=== PATIENT | male | born 1980 | race Caucasian/White ===

== ENCOUNTER 2023-01-24 22:46 | Inpatient (IN) ==
[2023-01-24] MEDS ORDERED: ONDANSETRON INJ 2 MG/ML 2 ML VIAL IV STA (23:03)
[2023-01-24] MEDS: SODIUM CHLORIDE 0.9% 1000ML 1,000 ML IV SCH (23:21)
[2023-01-24 23:38] LABS: Basophils # (auto) 0.06 K/uL (0-0.2); Basophils % (auto) 0.4 %; Eosinophils # (auto) 0.07 K/uL (0-0.50); Eosinophils % (auto) 0.4 %; Hemoglobin 15.7 g/dl (14.0-18.0); Immature Granulocytes # (auto) 0.07 K/uL (0.01-0.20); Immature Granulocytes % (auto) 0.4 %; Lymphocytes # (auto) 1.26 K/uL (1.2-3.4); Lymphocytes % (auto) 7.4 %; Mean Corpuscular Hemoglobin 32.2 pg (25.0-34.0); Mean Corpuscular Hgb Conc 36.5 g/dL (32.0-36.0); Mean Corpuscular Volume 88.3 fL (80.0-100.0); Mean Platelet Volume 9.1 fL (9.4-12.4); Monocytes # (auto) 0.76 K/uL (0.11-0.59); Monocytes % (auto) 4.5 %; Neutrophils # (auto) 14.83 K/uL (1.40-6.50); Neutrophils % (auto) 86.9 %; Platelet Count 234 K/uL (130-400); RDW Coefficient of Variation 12.6 % (11.5-14.5); RDW Standard Deviation 40.6 fL (36.4-46.3); Red Blood Count 4.87 M/uL (4.70-6.10); White Blood Count 17.05 K/ul (4.8-10.8)
--- NOTE | 2023-01-24 23:40 | Emergency Department Note ---
History of Present Illness General Chief complaint: Flu Like Symptoms Stated complaint: NAUSEA, VOMITING, BODY ACHES, Time Seen by Provider: 01/24/23 22:54 History of Present Illness Maximum Pain Intensity: 9 This is a 42-year-old male presenting to the emergency department for evaluation of nausea, vomiting, and diarrhea for the past 4 to 5 hours. The patient does not have any known exposure to disease. He does have diffuse abdominal pain. He does not have a history of abdominal surgery. No fevers or chills. He does not report anyone else in the household who has been sick. No travel. He rates the discomfort a /10. Home Medications Medication Instructions Recorded Confirmed Type cholecalciferol (vitamin D3) 50 50 mcg PO QAM 10/23/22 01/24/23 History mcg (2,000 unit) tablet multivitamin 1 tab PO QAM 10/23/22 01/24/23 History Allergies Allergy/AdvReac Type Severity Reaction Status Date / Time No Known Drug Allergies Allergy Verified 10/28/22 11:50 Past Med/Surg History Medical History Blood pressure elevated without history of HTN Dyslipidemia Snores Surgical History History of wisdom tooth extraction Family History Mother Hypertension Coronary heart disease Myocardial infarction Thyroid disease Aunt Hemochromatosis Paternal Father Spinal stenosis Hypertension Denies family history of Colon cancer Ovarian cancer Prostate cancer Breast cancer Social History Smoking Status: Current every day smoker Tobacco Type: Cigarettes Cigarettes Per Day: 1/2 - 1 pack per day; Second Hand Exposure: Yes; Do You Dip or Chew Tobacco: No; Hx Alcohol Use: Yes Alcohol type: beer Alcohol Intake Frequency: 4 or More x per/Week Alcohol Intake Frequency Comment: 6 Hx Substance Use: No Preferred Language: Polish Communication Ability: Effective Visual Impairment: No Limitations Hearing Ability: Normal Steam Tunnel Feeder Required: No Beliefs That Will Affect Care: None marital status: Legally Current Living Situation: Family Current Living Situation Comment: lives with his children current occupational status: employed 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 How many Children do You have: 2 Feels Safe at Home: Yes Childhood Exposure to Second-Hand Smoke: Yes Diet: regular caffeine: No during the past year weight has: decreased > 10 lbs Dental Care, Regularly: Yes Physical Activity Frequency: 1-2 Times per Week Seatbelt Use: always Sunscreen Use: Yes Assistive Devices: None Review of Systems A total of 10 systems reviewed and were otherwise negative Physical Exam Vital Signs Vital Signs - 24 hr 01/24/23 22:49 01/24/23 23:25 01/25/23 00:29 Temperature 35.9 C L Temperature Source Temporal Artery Scan Pulse Rate 63 57 L Pulse Rate [Finger] 91 H Respiratory Rate 20 20 Respiratory Effort / Characteristics Non-Labored Spontaneous Respiratory Depth Normal Blood Pressure 135/81 Blood Pressure [Left Arm] 153/89 H Blood Pressure Mean 99 Blood Pressure Mean [Left Arm] 110 Pulse Oximetry 99 97 Oxygen Delivery Method Room Air Room Air Sepsis Recent Fever Within 48 Hours No Sepsis New/Unexplained Change in Mental Status No Sepsis Action Taken by Nursing No Action Required VITALS: Vitals are noted on the nurse's note and reviewed by myself. Vital signs stable. GENERAL: Well-developed, well-nourished, white male, who is moderately uncomfortable appearing but nontoxic. HEAD: Normocephalic atraumatic. MOUTH: Mucous membranes moist. Tonsils are not enlarged. Pharynx without erythema, blood, or exudate. Uvula midline. Airway patent. NECK: Supple without nuchal rigidity. No lymphadenopathy. No thyromegaly. Cervical spine is nontender. HEART: Regular rate and rhythm without murmurs gallops or rubs. LUNGS: Clear to auscultation bilaterally without wheezes, rales or rhonchi. No retractions or accessory muscle use. ABDOMEN: Positive normal bowel sounds x 4. Soft, with generalized tenderness. No distinct rebound or guarding. MUSCULOSKELETAL: No muscle atrophy, erythema, or edema noted. Full range of motion in all extremities. Course Administered Medications Discontinued Medications Sodium Chloride (Nss 1000ml) 1,000 mls @ 999 mls/hr IV .Q1H1M MATEO Stop: 01/25/23 01:04 Last Admin: 01/25/23 00:29 Dose: 999 mls/hr Documented By: Infusion: 01/25/23 00:22 Dose: 999 mls/hr Documented By: Admin: 01/24/23 23:21 Dose: 999 mls/hr Documented By: BRITTANI Ioversol (Optiray 320 100ml) 94 ml IV ONCE ONE Stop: 01/25/23 00:29 Last Admin: 01/25/23 00:28 Dose: 94 ml Documented By: JANI Ondansetron HCl (Ondansetron Inj 2 Mg/Ml 2 Ml Vial) 4 mg IV NOW STA Stop: 01/24/23 23:04 Last Admin: 01/24/23 23:22 Dose: 4 mg Documented By: BRITTANI Medical Decision Making Differential Diagnosis Differential diagnosis: Etiologies such as biliary colic, cholecystitis, hepatitis, pancreatitis, cardiac disease, pancreatitis, gastritis, peptic ulcer disease, appendicitis, cystitis, diverticulitis, mesenteric ischemia, inflammatory bowel disease, ileus, bowel obstruction, testicular/adnexal torsion, aortic pathology, shingles, as well as others were considered Laboratory Data 01/24/23 23:08 01/24/23 23:08 Lab Results 01/24/23 01/24/23 01/24/23 Range/Units 23:08 23:08 23:08 WBC 17.05 H (4.8-10.8) K/ul RBC 4.87 (4.70-6.10) M/uL Hgb 15.7 (14.0-18.0) g/dl Hct 43.0 (42.0-52.0) % MCV 88.3 (80.0-100.0) fL MCH 32.2 (25.0-34.0) pg MCHC 36.5 H (32.0-36.0) g/dL RDW Std Deviation 40.6 (36.4-46.3) fL RDW Coeff of Laurie 12.6 (11.5-14.5) % Plt Count 234 (130-400) K/uL MPV 9.1 L (9.4-12.4) fL Immature Gran % (Auto) 0.4 % Neut % (Auto) 86.9 % Lymph % (Auto) 7.4 % Pitkin % (Auto) 4.5 % Eos % (Auto) 0.4 % Baso % (Auto) 0.4 % Neut # (Auto) 14.83 H (1.40-6.50) K/uL Lymph # (Auto) 1.26 (1.2-3.4) K/uL Pitkin # (Auto) 0.76 H (0.11-0.59) K/uL Eos # (Auto) 0.07 (0-0.50) K/uL Baso # (Auto) 0.06 (0-0.2) K/uL Immature Gran # (Auto) 0.07 (0.01-0.20) K/uL ESR 7 (0-15) mm/hr Sodium 139 (136-145) mmol/L Potassium 3.2 L (3.5-5.1) mmol/L Chloride 106 (98-107) mmol/L Carbon Dioxide 23 (21-32) mmol/L Anion Gap 10 (3-11) BUN 19 (6-23) mg/dl Creatinine 0.85 (0.6-1.4) mg/dl Est Cr Clr Drug Dosing 133.0 ml/min Est GFR ( Amer) 125.4 ml/min Est GFR (Non-Af Amer) 108.2 ml/min BUN/Creatinine Ratio 22.4 H (10-20) Glucose 124 H (70-99(Fasting)) mg/dl Calcium 9.5 (8.6-10.3) mg/dl Magnesium 1.7 (1.7-2.4) mg/dl Total Bilirubin 0.7 (0.2-1.0) mg/dl AST 15 (13-39) U/L ALT 17 (7-52) U/L Alkaline Phosphatase 56 (34-104) U/L C-Reactive Protein < 0.50 (0-0.5) mg/dl Total Protein 7.5 (6.0-8.3) gm/dl Albumin 4.6 (3.4-5.0) gm/dl Globulin 2.9 (2.5-4.0) gm/dl Albumin/Globulin Ratio 1.6 (0.9-2) Lipase 40 (11-82) U/L Urine Color Urine Appearance (Clear) Urine pH (4.5-7.5) Ur Specific Crossroads (1.000-1.030) Urine Protein (Negative) Urine Glucose (UA) (Negative) Urine Ketones (Negative) Urine Blood (Negative) Urine Nitrite (Negative) Urine Bilirubin (Negative) Urine Urobilinogen (Negative) Ur Leukocyte Esterase (Negative) Urine WBC (Auto) (0-5) /hpf Urine RBC (Auto) (0-4) /hpf U Hyaline Cast (Auto) (0-5) /lpf U Epithel Cells (Auto) (0-5) /lpf Urine Bacteria (Auto) (Negative) Ur Renal Epithelial Cell Urine Mucus (None Prsent) SARS-CoV-2, RNA, NAAT (NEGATIVE) 01/25/23 01/25/23 Range/Units Unknown Unknown WBC (4.8-10.8) K/ul RBC (4.70-6.10) M/uL Hgb (14.0-18.0) g/dl Hct (42.0-52.0) % MCV (80.0-100.0) fL MCH (25.0-34.0) pg MCHC (32.0-36.0) g/dL RDW Std Deviation (36.4-46.3) fL RDW Coeff of Laurie (11.5-14.5) % Plt Count (130-400) K/uL MPV (9.4-12.4) fL Immature Gran % (Auto) % Neut % (Auto) % Lymph % (Auto) % Pitkin % (Auto) % Eos % (Auto) % Baso % (Auto) % Neut # (Auto) (1.40-6.50) K/uL Lymph # (Auto) (1.2-3.4) K/uL Pitkin # (Auto) (0.11-0.59) K/uL Eos # (Auto) (0-0.50) K/uL Baso # (Auto) (0-0.2) K/uL Immature Gran # (Auto) (0.01-0.20) K/uL ESR (0-15) mm/hr Sodium (136-145) mmol/L Potassium (3.5-5.1) mmol/L Chloride (98-107) mmol/L Carbon Dioxide (21-32) mmol/L Anion Gap (3-11) BUN (6-23) mg/dl Creatinine (0.6-1.4) mg/dl Est Cr Clr Drug Dosing ml/min Est GFR ( Amer) ml/min Est GFR (Non-Af Amer) ml/min BUN/Creatinine Ratio (10-20) Glucose (70-99(Fasting)) mg/dl Calcium (8.6-10.3) mg/dl Magnesium (1.7-2.4) mg/dl Total Bilirubin (0.2-1.0) mg/dl AST (13-39) U/L ALT (7-52) U/L Alkaline Phosphatase (34-104) U/L C-Reactive Protein (0-0.5) mg/dl Total Protein (6.0-8.3) gm/dl Albumin (3.4-5.0) gm/dl Globulin (2.5-4.0) gm/dl Albumin/Globulin Ratio (0.9-2) Lipase (11-82) U/L Urine Color Yellow Urine Appearance Cloudy A (Clear) Urine pH 8.5 H (4.5-7.5) Ur Specific Crossroads 1.026 (1.000-1.030) Urine Protein 1+ H (Negative) Urine Glucose (UA) Negative (Negative) Urine Ketones 4+ H (Negative) Urine Blood Negative (Negative) Urine Nitrite Negative (Negative) Urine Bilirubin Negative (Negative) Urine Urobilinogen Negative (Negative) Ur Leukocyte Esterase Negative (Negative) Urine WBC (Auto) 1-5 (0-5) /hpf Urine RBC (Auto) 0-4 (0-4) /hpf U Hyaline Cast (Auto) 1-5 (0-5) /lpf U Epithel Cells (Auto) >30 H (0-5) /lpf Urine Bacteria (Auto) Negative (Negative) Ur Renal Epithelial Cell Not Reportable Urine Mucus Present A (None Prsent) SARS-CoV-2, RNA, NAAT NEGATIVE (NEGATIVE) Imaging Data Radiologist's Impression: Abdomen/Pelvis CT 01/24/23 23:03 CR Exam(s): CT ABDOMEN + PELVIS With Contrast IV Amt: 94ml of optiray 320 EXAM: CT Abdomen and Pelvis With Intravenous Contrast CLINICAL HISTORY: Reason for exam: n/v/d, abd pain. TECHNIQUE: Axial computed tomography images of the abdomen and pelvis with intravenous contrast. CTDI is 25.64 mGy and DLP is 1353.52 mGy-cm. Automated exposure control was utilized for the study. A dose lowering technique was utilized adhering to the principles of ALARA. CONTRAST: Patient received 94ml of optiray 320 of IV contrast COMPARISON: No relevant prior studies available. FINDINGS: Lung bases: Unremarkable. No mass. No consolidation. ABDOMEN: Liver: Unremarkable. No mass. Gallbladder and bile ducts: Unremarkable. No calcified stones. No ductal dilation. Pancreas: Unremarkable. No mass. No ductal dilation. Spleen: Unremarkable. No splenomegaly. Adrenals: Unremarkable. No mass. Kidneys and ureters: Unremarkable. No solid mass. No hydronephrosis. Stomach and bowel: Unremarkable. No obstruction. No mucosal thickening. PELVIS: Appendix: The appendix is mildly thickened with small appendicolith in place and mild periappendiceal stranding (image 61 series 2). Bladder: Unremarkable. No mass. Reproductive: Unremarkable as visualized. ABDOMEN and PELVIS: Intraperitoneal space: Unremarkable. No free air. No significant fluid collection. Bones/joints: No acute fracture. No dislocation. Soft tissues: Unremarkable. Vasculature: Unremarkable. No abdominal aortic aneurysm. Lymph nodes: Unremarkable. No enlarged lymph nodes. IMPRESSION: Findings concerning for early acute appendicitis with a small appendicolith. Communications: Verify Receipt Electronically signed by: Gentry Hernandez MD 01/25/23 00:41 AM MDM Narrative Physical exam and history were performed. Nursing notes, EMR, and Medication List were personally reviewed. No social concerns were identified as barriers to patients care. Patient appears to have nausea, vomiting, diarrhea, and abdominal pain bringing him to the ER. IV access was established and labs were obtained. Patient was hydrated and medicated as above. He was sent to CT scan for imaging of his belly. Patient's blood work is as above and was reviewed. He does have an elevated white count of 17,000. He does not have a significant anemia or gross electrolyte imbalance. Glucose is 124. Transaminases are not diagnostic. Urine is with ketones but no distinct evidence of infection. CT scan was reviewed by myself and radiology and shows acute appendicitis with appendicolith. COVID was performed and negative. Case was discussed with the on-call surgical team who agreed to evaluate the patient here in the ER. Please see their dictation for further patient course, plan, and disposition. The chart was completed utilizing [employer] Voice Recognition Software. Grammatical errors, random word insertions, pronoun errors, and incomplete sentences are an occasional consequence of this system due to software limitations, ambient noise, and hardware issues. Any formal questions or concerns about the content, text, or information contained within the body of this dictation should be directly addressed to the provider for clarification. . Impression & Plan Acute appendicitis, Nausea and vomiting Discharge Plan Visit Data Chief Complaint: Flu Like Symptoms Stated Complaint: NAUSEA, VOMITING, BODY ACHES, ED Provider: Alex Emanuel ED Midlevel Provider: Moe Ruiz Discharge Problem: Acute appendicitis, Nausea and vomiting Forms Stand Alone Forms: [facility] Prescriptions Prescriptions: No Action multivitamin Tablet 1 tab PO QAM cholecalciferol (vitamin D3) 50 mcg (2,000 unit) tablet 50 mcg PO QAM Referrals Referrals: Millicent Negron DO [Physician] -
[2023-01-24 23:56] LABS: Alanine Aminotransferase 17 U/L (7-52); Albumin Globulin Ratio 1.6 (0.9-2); Albumin Level 4.6 gm/dl (3.4-5.0); Alkaline Phosphatase 56 U/L (34-104); Anion Gap 10 (3-11); Aspartate Aminotransferase 15 U/L (13-39); BUN Creatinine Ratio 22.4 (10-20); Bilirubin,Total 0.7 mg/dl (0.2-1.0); Blood Urea Nitrogen 19 mg/dl (6-23); C Reactive Protein < 0.50 mg/dl (0-0.5); Calcium 9.5 mg/dl (8.6-10.3); Carbon Dioxide 23 mmol/L (21-32); Chloride 106 mmol/L (98-107); Est GFR (African American) 125.4 ml/min; Est GFR (Non-African American) 108.2 ml/min; Globulin 2.9 gm/dl (2.5-4.0); Glucose 124 mg/dl (70-99(Fasting)); Lipase 40 U/L (11-82); Magnesium 1.7 mg/dl (1.7-2.4); Potassium 3.2 mmol/L (3.5-5.1); Sodium 139 mmol/L (136-145); Total Protein 7.5 gm/dl (6.0-8.3)
[2023-01-25] MEDS ORDERED: OPTIRAY 320 100ml IV ONE (00:28)
[2023-01-25] MEDS: SODIUM CHLORIDE 0.9% 1000ML 1,000 ML IV SCH (00:29)
--- NOTE | 2023-01-25 00:41 | CT Scan Report ---
Exam(s): CT ABDOMEN + PELVIS With Contrast IV Amt: 94ml of optiray 320 EXAM: CT Abdomen and Pelvis With Intravenous Contrast CLINICAL HISTORY: Reason for exam: n/v/d, abd pain. TECHNIQUE: Axial computed tomography images of the abdomen and pelvis with intravenous contrast. CTDI is 25.64 mGy and DLP is 1353.52 mGy-cm. Automated exposure control was utilized for the study. A dose lowering technique was utilized adhering to the principles of ALARA. CONTRAST: Patient received 94ml of optiray 320 of IV contrast COMPARISON: No relevant prior studies available. FINDINGS: Lung bases: Unremarkable. No mass. No consolidation. ABDOMEN: Liver: Unremarkable. No mass. Gallbladder and bile ducts: Unremarkable. No calcified stones. No ductal dilation. Pancreas: Unremarkable. No mass. No ductal dilation. Spleen: Unremarkable. No splenomegaly. Adrenals: Unremarkable. No mass. Kidneys and ureters: Unremarkable. No solid mass. No hydronephrosis. Stomach and bowel: Unremarkable. No obstruction. No mucosal thickening. PELVIS: Appendix: The appendix is mildly thickened with small appendicolith in place and mild periappendiceal stranding (image 61 series 2). Bladder: Unremarkable. No mass. Reproductive: Unremarkable as visualized. ABDOMEN and PELVIS: Intraperitoneal space: Unremarkable. No free air. No significant fluid collection. Bones/joints: No acute fracture. No dislocation. Soft tissues: Unremarkable. Vasculature: Unremarkable. No abdominal aortic aneurysm. Lymph nodes: Unremarkable. No enlarged lymph nodes. IMPRESSION: Findings concerning for early acute appendicitis with a small appendicolith. Communications: Verify Receipt Electronically signed by: Gentry Hernandez MD 01/25/23 00:41 AM
[2023-01-25 00:47] LABS: Appearance Urine Cloudy (Clear); Bacteria Urine Automated Negative (Negative); Bilirubin Urine Negative (Negative); Blood Urine Negative (Negative); Color Urine Yellow; Epithelial Cell Urine Auto >30 /lpf (0-5); Glucose Urine UA Negative (Negative); Ketones Urine 4+ (Negative); Leukocyte Esterase Urine Negative (Negative); Nitrite Urine Negative (Negative); RBC Urine Automated 0-4 /hpf (0-4); Specific Gravity Urine 1.026 (1.000-1.030); Urobilinogen Urine Negative (Negative); pH Urine 8.5 (4.5-7.5)
[2023-01-25 00:49] LABS: Protein Urine 1+ (Negative)
[2023-01-25 01:00] LABS: Mucus Urine Present (None Prsent)
[2023-01-25] MEDS ORDERED: POTASSIUM CHLORIDE / WTR 10 MEQ/100 ML PLCT IV ONE (01:14)
[2023-01-25] MEDS ORDERED: ACETAMINOPHEN 1,000 MG/100 ML VIAL IV PRN (01:16)
[2023-01-25] MEDS ORDERED: ONDANSETRON INJ 2 MG/ML 2 ML VIAL IV PRN ×2 (01:16→08:03)
[2023-01-25] MEDS ORDERED: PIPERACILLIN/TAZOBACTAM 4.5 GM/120 ML BAG IV STA (01:19)
--- NOTE | 2023-01-25 01:24 | History & Physical Report ---
Date of Service January 25, 2023 Assessment & Plan (1) Appendicitis: Plan: Due to the patient's clinical presentation, labs, and findings on imaging we will admit him to the hospital proceeding as follows: N.p.o. status will be implemented Analgesics will be ordered Antiemetics will be ordered We will administer broad-spectrum antibiotics in the form of Zosyn and continue this while he is admitted to the hospital We will hydrate the patient with IV fluids supplementing his potassium Serial labs will be followed We have scheduled the patient for an appendectomy with Dr. Bermudez. I have outlined the risks, benefits, and alternatives with the patient as well as discussed with him the expected postoperative course. He is agreeable to proceed. Additional recommendations be forthcoming based on operative findings and his postoperative recovery thereafter SCDs were used for DVT prevention. No chemical means due to planned surgery He will be a level 1 full code History of Present Illness Chief Complaint: Abdominal pain Primary Care Provider: NO PCP This is a 42-year-old male who says he was feeling well yesterday but earlier in the evening of 01/24/2023 he developed abdominal pain. He notes that the pain is located primarily in his lower abdomen in a bandlike fashion which is somewhat worse on the right. He did not note any modifying factors or radiation of the pain. He did have associated nausea and vomiting but did not have any fevers, shakes, or chills. He denies any prior abdominal surgeries. Because of his symptoms he presented to the emergency department. In the emergency department patient had labs and imaging which I independently reviewed. He did have a CT scan of the abdomen and pelvis that showed that his appendix was mildly thickened with a small appendicolith. There is periappendiceal fat stranding of a mild nature which was concerning for an early acute appendicitis. Labs include a CBC her white blood cell count was elevated at 17.05. Hemoglobin, hematocrit, and platelet count were normal. Chemistry profile showed sodium was 139. Potassium was 3.2. BUN and creatinine were both normal and there were no elevation of LFTs or lipase. Urinalysis was not indicative of infection and a COVID test was negative. Since arrival to the emergency department the patient did receive antiemetics in the form of Zofran as well as 1 L of normal saline solution. At the time of my interview the patient was noted to be afebrile and hemodynamically stable without hypotension. The patient's heart rate has ranged anywhere from the mid 50s to the mid 90s. At the time of my interview the patient was resting comfortably in bed and he was in no distress. Allergies Allergy/AdvReac Type Severity Reaction Status Date / Time No Known Drug Allergies Allergy Verified 10/28/22 11:50 Home Medications Medication Instructions Recorded Confirmed Type cholecalciferol (vitamin D3) 50 50 mcg PO QAM 10/23/22 01/24/23 History mcg (2,000 unit) tablet multivitamin 1 tab PO QAM 10/23/22 01/24/23 History Past Med/Surg History Medical History Blood pressure elevated without history of HTN Dyslipidemia Snores Surgical History History of wisdom tooth extraction Family History Mother Hypertension Coronary heart disease Myocardial infarction Thyroid disease Aunt Hemochromatosis Paternal Father Spinal stenosis Hypertension Denies family history of Colon cancer Ovarian cancer Prostate cancer Breast cancer Social History Smoking Status: Current every day smoker Tobacco Type: Cigarettes Cigarettes Per Day: a pack; Second Hand Exposure: No; Do You Dip or Chew Tobacco: No; Tobacco Cessation Education Requested by Patient: No Hx Alcohol Use: Yes Alcohol type: beer Alcohol Intake Frequency: 4 or More x per/Week Alcohol Intake Frequency Comment: 6 Hx Substance Use: No Preferred Language: Lithuanian Communication Ability: Effective Visual Impairment: No Limitations Hearing Ability: Normal Record Changer Required: No Beliefs That Will Affect Care: None marital status: Legally Current Living Situation: Alone and Other Current Living Situation Comment: Home with children current occupational status: employed 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 How many Children do You have: 2 Other Information That Helps Us Care for You: No Feels Safe at Home: Yes Safety Concerns: Feels Safe At This Time Childhood Exposure to Second-Hand Smoke: Yes Diet: regular caffeine: No during the past year weight has: decreased > 10 lbs Dental Care, Regularly: Yes Physical Activity Frequency: 1-2 Times per Week Seatbelt Use: always Sunscreen Use: Yes Assistive Devices: None Review of Systems Constitutional: no fever and no chills Ear, Nose, Mouth, Throat: no hearing loss Respiratory: no cough and no dyspnea Cardiovascular: no chest pain Gastrointestinal: as per Subjective / HPI Genitourinary: no dysuria Musculoskeletal: no back pain Integumentary: no rash Neurologic: no localized weakness Physical Exam Constitutional: WD/WN, vitals as above Eyes: no conjunctival abnormality ENMT: Ears: no hearing impairment and no external ear abnormality Mouth: no oropharynx abnormality Neck: trachea midline Respiratory: normal respiratory effort; no respiratory distress and no labored breathing Cardiovascular: Rate/Rhythm: regular rate and regular rhythm Vessels: dorsalis pedis pulses present and radial pulses present Gastrointestinal (Abdomen): Abdomen is soft, nonrigid, nondistended. At the time of my exam there is no rebound tenderness or guarding. Patient did have minor pain noted with palpation in the lower abdomen. Musculoskeletal: No calf tenderness Skin: no rashes Neurologic: moves all extremities Psychiatric: A+Ox3, euthymic affect Results & Data Results & Data Vital Signs (Past 12 Hours) Vital Signs Temp Pulse Pulse Resp BP BP Pulse Ox 01/25/23 00:29 91 H 20 153/89 H 97 01/24/23 23:25 57 L 01/24/23 22:49 35.9 C L 63 20 135/81 99 O2 Del Method 01/25/23 00:29 Room Air 01/24/23 23:25 01/24/23 22:49 Room Air Supervising Physician Co-Signing Physician Notes As per Piero Husseni physician supply chain assistant Right lower quadrant discomfort deep palpation CAT scan finding and physical findings discussed with the patient further and recommended laparoscopic appendectomy possible open discussed with him that the patient had a fecalith in the appendix and there is a relative contraindication to treat this with antibiotics rather than surgery PG Care Time/CCT Total # of Minutes Spent Total Time Spent with Patient: Total time spent is greater than 50% in coordination of care (as documented) at patient's floor/unit and/or counseling patient: Coding Level of Care Code 39624 INT INP/OBS CARE 3/75MIN Diagnoses Appendicitis K37
[2023-01-25] MEDS ORDERED: POTASSIUM CHLORIDE 10 MEQ in LACTATED RINGER'S 1,000 ML IV SCH (03:15)
[2023-01-25 06:39] LABS: Basophils # (auto) 0.04 K/uL (0-0.2); Basophils % (auto) 0.3 %; Eosinophils # (auto) 0.04 K/uL (0-0.50); Eosinophils % (auto) 0.3 %; Immature Granulocytes # (auto) 0.04 K/uL (0.01-0.20); Immature Granulocytes % (auto) 0.3 %; Lymphocytes # (auto) 2.44 K/uL (1.2-3.4); Lymphocytes % (auto) 20.6 %; Mean Corpuscular Hgb Conc 35.7 g/dL (32.0-36.0); Mean Corpuscular Volume 89.6 fL (80.0-100.0); Mean Platelet Volume 9.2 fL (9.4-12.4); Monocytes # (auto) 0.82 K/uL (0.11-0.59); Monocytes % (auto) 6.9 %; Neutrophils # (auto) 8.46 K/uL (1.40-6.50); Neutrophils % (auto) 71.6 %; Platelet Count 213 K/uL (130-400); RDW Coefficient of Variation 12.9 % (11.5-14.5); RDW Standard Deviation 41.5 fL (36.4-46.3); Red Blood Count 4.69 M/uL (4.70-6.10); White Blood Count 11.84 K/ul (4.8-10.8)
[2023-01-25] MEDS ORDERED: LIDOCAINE 1%/EPINEPHRINE 1:100,000 20 ML VIAL ONE (06:49)
[2023-01-25 06:52] LABS: BUN Creatinine Ratio 15.2 (10-20); Calcium 8.1 mg/dl (8.6-10.3); Creatinine Clr Calc Pharmacy 143.1 ml/min; Est GFR (African American) 129.3 ml/min; Est GFR (Non-African American) 111.5 ml/min; Potassium 4.1 mmol/L (3.5-5.1)
[2023-01-25] MEDS ORDERED: SUGAMMADEX SODIUM 200 MG/2 ML VIAL IV ONE (07:00)
[2023-01-25] MEDS ORDERED: DEXAMETHASONE SOD INJ 4 MG/ML VIAL ONE (07:00)
[2023-01-25] MEDS ORDERED: PROPOFOL IV EMULSION 10 MG/ML 20 ML VIAL IV ONE ×2 (07:00→08:27)
[2023-01-25] MEDS ORDERED: ROCURONIUM BROMIDE 10 MG/ML 5 ML VIAL IV ONE ×5 (07:00)
[2023-01-25] MEDS ORDERED: fentaNYL citrate PF 100 MCG/2 ML VIAL ONE ×4 (07:00→10:08)
[2023-01-25] MEDS ORDERED: SUCCINYLCHOLINE CHLORIDE 20 MG/ML 10 ML VIAL IV ONE (07:00)
[2023-01-25] MEDS ORDERED: ONDANSETRON INJ 2 MG/ML 2 ML VIAL ONE (07:00)
--- NOTE | 2023-01-25 07:08 | Anesthesiology Consultation ---
Date of Service January 25, 2023 Assessment & Plan Chart Review Chart Review: Acceptable Risk for Surgery and Patient NOT seen in Pre Admission Testing Consults Requested none ASA [id number] Proposed Anesthesia Anesthesia Type: General History Surgery Operation Date: 01/25/23 08:00 Proposed Procedures p Laparoscopic Appendectomy - Tien Bermudez MD, FACS Height/Weight Height: 6 ft 2 in Weight: 98.1 kg Allergies Allergy/AdvReac Type Severity Reaction Status Date / Time No Known Drug Allergies Allergy Verified 10/28/22 11:50 Medications Home Medications Medication Instructions Recorded Confirmed Last Taken cholecalciferol (vitamin D3) 50 50 mcg PO QAM 10/23/22 01/24/23 Unknown mcg (2,000 unit) tablet multivitamin 1 tab PO QAM 10/23/22 01/24/23 Unknown NPO Date Last Intake of Fluids: 01/24/23 Time Last Intake of Fluids: 20:00 Last Intake of Fluids Comment: patient unable to keep it down Date Last Intake of Solids: 01/24/23 Time Last Intake of Solids: 12:00 Last Intake of Solids Comment: patient unable to keep it down Past Medical History Medical History Blood pressure elevated without history of HTN Dyslipidemia Snores + tobacco smoker Exercise / Class Metabolic Activity II 4-5 Yardwork/Stairs/Walk up hill Past Family History Family History Mother Hypertension Coronary heart disease Myocardial infarction Thyroid disease Aunt Hemochromatosis Paternal Father Spinal stenosis Hypertension Denies family history of Colon cancer Ovarian cancer Prostate cancer Breast cancer Past Surgical History Surgical History History of wisdom tooth extraction Past Anesthesia History No Hx of Anesthesia Complications and No Family Hx of Anesthesia Complications History of PONV No Hx of PONV and No Hx of Motion Sickness Social History Smoking Status: Current every day smoker tobacco type: cigarettes Smoking cigarettes per day: a pack Do You Dip or Chew Tobacco: No Hx Alcohol Use: Yes Alcohol type: beer alcohol intake frequency: a few times a week Alcohol Intake Frequency Comment: 12 pack a week Hx Substance Use: No substance use type: marijuana Physical Exam Vital Signs Last Vital Signs Temp 36.7 C 01/25/23 02:37 Pulse 70 01/25/23 02:37 Resp 18 01/25/23 02:37 BP 154/78 H 01/25/23 02:37 Pulse Ox 96 01/25/23 02:37 O2 Del Method Room Air 01/25/23 02:37 Testing Laboratory Results 01/25/23 06:14 01/25/23 06:14 Urine Color Yellow 01/25/23 Unknown Urine Appearance Cloudy (Clear) A 01/25/23 Unknown Urine pH 8.5 (4.5-7.5) H 01/25/23 Unknown Ur Specific [place] 1.026 (1.000-1.030) 01/25/23 Unknown Urine Protein 1+ (Negative) H 01/25/23 Unknown Urine Glucose (UA) Negative (Negative) 01/25/23 Unknown Urine Ketones 4+ (Negative) H 01/25/23 Unknown Urine Nitrite Negative (Negative) 01/25/23 Unknown Ur Leukocyte Esterase Negative (Negative) 01/25/23 Unknown Urine WBC (Auto) 1-5 /hpf (0-5) 01/25/23 Unknown Urine RBC (Auto) 0-4 /hpf (0-4) 01/25/23 Unknown U Hyaline Cast (Auto) 1-5 /lpf (0-5) 01/25/23 Unknown U Epithel Cells (Auto) >30 /lpf (0-5) H 01/25/23 Unknown Urine Bacteria (Auto) Negative (Negative) 01/25/23 Unknown Electrocardiogram Date: 01/24/23 Findings: + NSR @ (@ 67;IRBBB)
[2023-01-25] MEDS: LACTATED RINGER'S 1,000 ML IV SCH ×2 (07:23→16:18)
[2023-01-25] MEDS ORDERED: PROMETHAZINE HCL 12.5 MG in SODIUM CHLORIDE 0.9% 50 ML IV PRN (08:03)
[2023-01-25] MEDS ORDERED: NALOXONE HCL 0.4 MG/1 ML VIAL/CARP IV PRN (08:03)
[2023-01-25] MEDS ORDERED: HYDROmorphone INJ 1 MG/ML SYRINGE IV PRN (08:03)
[2023-01-25] MEDS ORDERED: ATROPINE SULFATE 0.1 MG/ML 10ML SYR IV PRN (08:03)
[2023-01-25] MEDS ORDERED: ePHEDrine sulfate 50 MG/ML AMP IV PRN (08:03)
[2023-01-25] MEDS ORDERED: LABETALOL HCL IV 5 MG/ML 20ML IV PRN (08:03)
[2023-01-25] MEDS ORDERED: FLUMAZENIL 0.1 MG/1 ML 10 ML VIAL IV PRN (08:03)
[2023-01-25] MEDS: PIPERACILLIN/TAZOBACTAM 4.5 GM in DEXTROSE 5% 100 ML IV SCH ×2 (08:15→16:27)
[2023-01-25] MEDS ORDERED: KETAMINE 50 MG/5 ML SYRINGE ONE (08:28)
--- NOTE | 2023-01-25 09:43 | Post Operative Brief Note ---
Immediate Post Op Note v1 Date of Surgery January 25, 2023 Pre & Post Diagnosis Operation Date: 01/25/23 08:00 Pre-Op Diagnosis: Appendicitis Post-Op Diagnosis: Appendicitis I identified the patient and participated in the time-out.: Yes Procedure Operation Date: 01/25/23 08:00 Actual Procedures p Laparoscopic Appendectomy(Not Applicable) - Tien Bermudez MD, FACS Surgeon Tien Bermudez MD, FACS Vendor Specialist o Estimated Blood Loss 50 Findings Consistent with Post-Op Diagnosis
--- NOTE | 2023-01-25 10:04 | Operative Report ---
PG Post Operative Report Pre & Post Diagnosis Operation Date: 01/25/23 08:00 Pre-Op Diagnosis: Appendicitis Post-Op Diagnosis: Appendicitis I identified the patient and participated in the time-out.: Yes Procedure Operation Date: 01/25/23 08:00 Actual Procedures p Laparoscopic Appendectomy(Not Applicable) - Tien Bermudez MD, FACS The patient was brought into the operating theater supine position general endotracheal anesthesia the abdomen was prepped Betadine solution properly draped systemic antibiotics on board timeout was had patient identified made a small transverse incision above the umbilicus sufficient to place a Veress needle followed by 5 mm trocar point of entry specter no injury identified on direct visualization we could see the cecum was could not identify the appendix lab and on direct visualization we placed a 5 mm right upper quadrant trocar with preemptive local analgesic at this point we were able to elevate the cecum to identify the base of the appendix therefore on direct visualization I enlarged the skin incision in the umbilical area placed the insufflation after the right upper quadrant trocar site and remove the 5 mm trocar from the supraumbilical area enlarged the incision and used a Yanely clamp just to dilate the tract sufficiently that we placed a 12 mm trocar some bleeding was appreciated around the area and seem to be subsiding therefore under direct visualization we placed a 5 mm left lower quadrant trocar preemptive local analgesic the camera was placed in left lower quadrant patient rotated to the left then under direct visualization and then we elevated the cecum could identify the base of the appendix which was completely normal free of any disease and worked our way down and the tip of the appendix and fci up was dilated some edema in the tissue was appreciated the mesoappendix was then divided using 5 mm 10 mm clips dividing it down to the base of the appendix which we took off of the cecum by using a blue load TOBIN this point the appendix was placed in an Endopouch and taken out through the umbilical port once we removed the 4 mm trocar from the umbilical area with the appendix there was a pretty significant amount of bleeding appreciated subcutaneously around the initial site and eventually it took a while to control this we had to enlarge the incision enlarged the fascial the patient has significant pulsatile bleeding right along the midline supraumbilically suspicious that he had a prominent umbilical artery still present eventually were able to control with multiple sutures we did bleed about 50 cc try to control this area, once it hemostasis appeared to be satisfactory we reinsufflated the abdomen and we could see that there was no bleeding identified in the in the falciform ligament or the initial site where we went and intra-abdominally with free of any further bleeding we had opened the fascia more controlled the bleeding therefore we closed tra nsversely with [id number] interrupted 0 PDS sutures once hemostasis was satisfactory we visualized the area intra-abdominal he could see no further bleeding individual trocars were taken out under direct visualization the wound was then closed with 4-0 Monocryl subcuticularly but 2-0 Vicryl was used interrupted for the subcutaneous around the umbilical area Steri-Strips applied procedure was tolerated well by the patient we estimated blood loss approximately 50 cc mostly related to the control this bleeding which was quite significant and I never seen it before to this prominence Talk to his dad Bin by phone at [phone] Surgeon Tien Bermudez MD, FACS Building Pressure Washer o Estimated Blood Loss 50 Findings Consistent with Post-Op Diagnosis Acute appendix Specimens Append Complications More than normal bleeding around the umbilical port site that took some time to control this repair to have a prominent umbilical artery Indications Right lower quadrant pain clinically radiographically acute appendicitis Description of Procedure merda I attest to the content of the Intraoperative Record and any orders documented therein. Any exceptions are noted below.
[2023-01-25] MEDS: fentaNYL citrate PF 100 MCG/2 ML VIAL IV PRN ×4 (10:08→10:23)
--- NOTE | 2023-01-25 10:32 | Anesthesiology Progress Note ---
Date of Service January 25, 2023 Anesthesia Post Procedure Vital Signs Vital Signs: Temp Pulse Pulse Pulse Resp BP BP 01/25/23 10:20 69 16 140/79 01/25/23 10:10 36.6 C 82 14 143/89 H 01/25/23 10:00 77 16 140/83 01/25/23 09:51 36.0 C L 90 14 158/106 H 01/25/23 02:37 36.7 C 70 18 154/78 H 01/25/23 00:29 91 H 20 153/89 H 01/24/23 23:25 57 L 01/24/23 22:49 35.9 C L 63 20 135/81 Pulse Ox O2 Del Method O2 Flow Rate 01/25/23 10:20 94 Room Air 01/25/23 10:10 99 Room Air 01/25/23 10:00 97 Room Air 01/25/23 09:51 98 Oxymask 6 01/25/23 02:37 96 Room Air 01/25/23 00:29 97 Room Air 01/24/23 23:25 01/24/23 22:49 99 Room Air Pain Intensity Abdomen: Pain Intensity: 5 Transfer of Care Handoff Completed per policy Notes Mental Status: alert / awake / arousable Patient Amnestic to Procedure: Yes Nausea / Vomiting: adequately controlled Pain: adequately controlled Airway Patency, RR, SpO2: stable & adequate BP & HR: stable & adequate Hydration State: stable & adequate Anesthetic Complications: no major complications apparent
[2023-01-25] MEDS: MoRPHine SULFATE 4 MG/ML 1 ML CARP\\VIAL IV PRN ×2 (12:58→17:58)
[2023-01-25] MEDS ORDERED: ACETAMINOPHEN 325 MG TAB PO PRN (19:35)
[2023-01-25] MEDS: oxyCODONE HCL IR 5 MG TAB (IMMEDIATE RELEASE) PO PRN (22:17)
[2023-01-26] MEDS: PIPERACILLIN/TAZOBACTAM 4.5 GM in DEXTROSE 5% 100 ML IV SCH ×2 (00:18→08:34)
--- NOTE | 2023-01-26 07:56 | Surgery Progress Note ---
Date of Service January 26, 2023 Assessment & Plan (1) Appendicitis: Plan: 01/26/23 POD#1 status post laparoscopic appendectomy Operative findings were discussed with the patient and mention to him specifically that he most likely had a patent umbilical artery and has some bleeding around her trocar at the time At this point the patient can be discharged instructions were given regarding wound care diet and activity and follow-up in our office 1 week Due to the patient's clinical presentation, labs, and findings on imaging we will admit him to the hospital proceeding as follows: N.p.o. status will be implemented Analgesics will be ordered Antiemetics will be ordered We will administer broad-spectrum antibiotics in the form of Zosyn and continue this while he is admitted to the hospital We will hydrate the patient with IV fluids supplementing his potassium Serial labs will be followed We have scheduled the patient for an appendectomy with Dr. Bermudez. I have outlined the risks, benefits, and alternatives with the patient as well as discussed with him the expected postoperative course. He is agreeable to proceed. Additional recommendations be forthcoming based on operative findings and his postoperative recovery thereafter SCDs were used for DVT prevention. No chemical means due to planned surgery He will be a level 1 full code Admission and Anticipated Discharge Date Admission Date: January 25, 2023 Subjective No complaints feels fine overall took 1 Percocet over the night made him sleepy Tolerated diet last evening Physical Exam Physical Exam: Alert coherent no distress The abdomen is benign the dressing around the umbilical area is dry Results & Data Vital Signs (Past 12 Hours) Vital Signs Temp Pulse Resp BP Pulse Ox O2 Del Method 01/26/23 07:40 36.7 C 59 L 18 154/88 H 97 Room Air 01/26/23 04:15 36.7 C 61 18 129/82 97 Room Air 01/25/23 20:00 Room Air 01/25/23 22:48 36.7 C 61 18 128/55 L 96 Room Air
[2023-01-26] MEDS: oxyCODONE HCL IR 5 MG TAB (IMMEDIATE RELEASE) PO PRN (09:07)
--- NOTE | 2023-01-27 07:53 | Electrocardiogram Report ---
Test Reason : Blood Pressure : / mmHG Vent. Rate : 067 BPM Atrial Rate : 067 BPM P-R Int : 140 ms QRS Dur : 108 ms QT Int : 444 ms P-R-T Axes : 043 005 028 degrees QTc Int : 469 ms Normal sinus rhythm Incomplete right bundle branch block Borderline ECG No previous ECGs available Confirmed by Tony Preston ([id number]) on 01/27/2023 7:53:18 AM Referred By: REFERRED SELF Confirmed By:Tony Preston
--- NOTE | 2023-01-29 20:58 | Discharge Summary ---
Date of Service January 29, 2023 Admission HPI Per Admitting Provider This is a 42-year-old male who says he was feeling well yesterday but earlier in the evening of 01/24/2023 he developed abdominal pain. He notes that the pain is located primarily in his lower abdomen in a bandlike fashion which is somewhat worse on the right. He did not note any modifying factors or radiation of the pain. He did have associated nausea and vomiting but did not have any fevers, shakes, or chills. He denies any prior abdominal surgeries. Because of his symptoms he presented to the emergency department. In the emergency department patient had labs and imaging which I independently reviewed. He did have a CT scan of the abdomen and pelvis that showed that his appendix was mildly thickened with a small appendicolith. There is periappendiceal fat stranding of a mild nature which was concerning for an early acute appendicitis. Labs include a CBC her white blood cell count was elevated at 17.05. Hemoglobin, hematocrit, and platelet count were normal. Chemistry profile showed sodium was 139. Potassium was 3.2. BUN and creatinine were both normal and there were no elevation of LFTs or lipase. Urinalysis was not indicative of infection and a COVID test was negative. Since arrival to the emergency department the patient did receive antiemetics in the form of Zofran as well as 1 L of normal saline solution. At the time of my interview the patient was noted to be afebrile and hemodynamically stable without hypotension. The patient's heart rate has ranged anywhere from the mid 50s to the mid 90s. At the time of my interview the patient was resting comfortably in bed and he w as in no distress. Discharge Data Consultations 01/25/23 01:28 Consult General Surgery Stat Procedures Performed Operation Date: 01/25/23 08:00 Actual Procedures p Laparoscopic Appendectomy(Not Applicable) - Tien Bermudez MD, FACS Hospital Course (1) Acute appendicitis: Date of admission: 01/25/2023 Date of discharge 01/26/2023 Patient was admitted to [facility] on 01/25/2023 secondary to abdominal pain. Imaging patient underwent was consistent with appendicitis the patient was admitted to the hospital. Patient was ultimately taken to the operating room where he underwent a laparoscopic appendectomy by Dr. Harris daily without complication. He had an uneventful postoperative course and was deemed stable for discharge home on 01/26/2023. He was instructed on appropriate wound care, diet, and activity and was instructed to follow-up with Dr. Nahum Joyner in the clinic in 1 to 2 weeks. Coding Level of Care Code 52510 IN/OBS DISCH 30 MIN/LESS Diagnoses Acute appendicitis K35.80
== END 2023-01-26 10:16 | disposition home or self-care (01) | DRG 342 ==
LOC: ED 22:46 → 3N 01-25 01:27
DX: K35.80 Unspecified acute appendicitis; F17.210 Nicotine dependence, cigarettes, uncomplicated; Y92.234 Operating room of hospital as the place of occurrence of the external cause; I97.42 Intraoperative hemorrhage and hematoma of a circulatory system organ or structure complicating other procedure; Z79.899 Other long term (current) drug therapy; Y83.6 Removal of other organ (partial) (total) as the cause of abnormal reaction of the patient, or of later complication, without mention of misadventure at the time of the procedure